=== PATIENT | male | born 1965 | race Caucasian/White ===

== ENCOUNTER 2017-02-17 10:44 | Emergency (ER) | payer MEDICAID ==
[~2017-02-17] VITALS: Ht 190.5 cm; Wt 127.0 kg
[2017-02-17 13:10] LABS: BASOPHILS % 1.3 % (0.0-2.0); EOSINOPHILS % 1.4 % (0.0-5.0); HEMOGLOBIN. 14.6 g/dL (14.0-18.0); LYMPHOCYTES % 20.2 % (20.0-50.0); MEAN CORPUSCULAR HEMOGLOBIN 30.2 pg (28.0-32.0); MEAN PLATELET VOLUME 8.8 fl (7.4-10.4); MONOCYTES % 8.7 % (2.0-8.0); NEUTROPHILS % 68.4 % (40.0-76.0); PLATELET 186 x1000/uL (130-400); RED BLOOD CELL COUNT 4.83 mill/uL (4.7-6.1); RED CELL DISTRIBUTION WIDTH 13.4 % (11.6-14.6)
[2017-02-17 13:17] LABS: INR 1.1; PROTHROMBIN TIME 11.1 sec
[2017-02-17 13:27] LABS: CARBON DIOXIDE 29 mEq/L (21-32); CHLORIDE 108 mEq/L (98-107); ETHANOL BLOOD < 10 mg/dL; TROPONIN I < 0.02 ng/mL (0.00-0.04)
[2017-02-17 13:33] LABS: *AMPHETAMINES SCREEN URINE NEGATIVE (NEGATIVE); *BARBITURATES SCREEN URINE NEGATIVE (NEGATIVE); *BENZODIAZEPINES SCREEN URINE NEGATIVE (NEGATIVE); *COCAINE SCREEN URINE NEGATIVE (NEGATIVE); CANNABINOID URINE SCREEN NEGATIVE (NEGATIVE); METHADONE URINE SCREEN NEGATIVE (NEGATIVE); OPIATES URINE SCREEN NEGATIVE (NEGATIVE); PHENCYCLIDINE URINE SCREEN NEGATIVE (NEGATIVE)
[2017-02-17 15:00] VITALS: BP 141/90
[2017-02-17] MEDS ORDERED: ASPIRIN 325MG TABLET PO NR (15:00)
[2017-02-17] MEDS ORDERED: FAMOTIDINE 20MG/2ML VIAL IV NR (15:00)
[2017-02-17 15:42] LABS: BG BASE EXCESS -1.1 mmol/L (-2.0-2.0); BG DEOXYHEMOGLOBIN 3.9 % (0.0-5.0); BG FRACTION INSPIRED OXYGEN 21; BG HCO3 ACT 22.2 mmol/L (22.0-26.0); BG METHEMOGLOBIN 0.3 % (0.0-1.5); BG OXYHEMOGLOBIN 94.8 % (94.0-97.0); BG PCO2 33.3 mmHg (35.0-45.0); BG PH 7.441 (7.350-7.450); BG PO2 82.8 mmHg (75.0-100.0); BG SAMPLE SITE LEFT RADIAL; BG TOTAL HEMOGLOBIN 15.3 g/dL (12.0-18.0); BG VENT MODE ROOM AIR
== END 2017-02-17 15:26 | disposition home or self-care (01) ==
LOC: ER 10:44
DX: R00.2 Palpitations (principal); E11.9 Type 2 diabetes mellitus without complications
CPT/HCPCS: 36415; 36600; 71010; 80053; 80305; 82375; 82805; 83036; 83690; 83880; 84484; 85025; 85610; 93005; 99285; G0482

== ENCOUNTER 2018-02-26 06:19 | Emergency (ER) | payer MEDICAID ==
[~2018-02-26] VITALS: Ht 190.5 cm; Wt 109.0 kg
[2018-02-26] MEDS ORDERED: KETOROLAC 60MG/2ML VIAL IM NR (09:58)
[2018-02-26 10:28] VITALS: BP 122/83
== END 2018-02-26 12:10 | disposition home or self-care (01) ==
LOC: ER 06:19
DX: M25.572 Pain in left ankle and joints of left foot (principal); M10.9 Gout, unspecified; R03.0 Elevated blood-pressure reading, without diagnosis of hypertension
CPT/HCPCS: 73610; 96372; 99284; J1885

== ENCOUNTER 2019-05-19 10:57 | Emergency (ER) | payer MEDICAID ==
[~2019-05-19] VITALS: Ht 182.9 cm; Wt 95.0 kg
[2019-05-19] MEDS ORDERED: TRAMADOL 50MG TABLET PO ONE (11:30)
[2019-05-19] MEDS ORDERED: COLCHICINE 0.6MG TABLET PO ONE (12:30)
[2019-05-19] MEDS ORDERED: KETOROLAC 60MG/2ML VIAL IM ONE (12:30)
[2019-05-19 13:37] VITALS: BP 144/99
== END 2019-05-19 13:43 | disposition home or self-care (01) ==
LOC: ER 10:57
DX: R07.89 Other chest pain (principal); M10.9 Gout, unspecified
CPT/HCPCS: 36415; 84484; 93005; 96372; 99284; J1885

== ENCOUNTER 2021-03-16 13:12 | Emergency (ER) | payer MEDICAID ==
[~2021-03-16] VITALS: Ht 188 cm; Wt 132.0 kg
[2021-03-16 14:20] VITALS: BP 117/83
[2021-03-16] MEDS ORDERED: NEOM10SO12 LEFT EAR (15:02)
[2021-03-16] MEDS ORDERED: AMOX-424 MT (15:02)
== END 2021-03-16 15:09 | disposition home or self-care (01) ==
LOC: ER 13:22
DX: H66.93 Otitis media, unspecified, bilateral (principal); H60.92 Unspecified otitis externa, left ear
CPT/HCPCS: 99283

== ENCOUNTER 2022-04-13 19:13 | Emergency (ER) | payer MEDICAID ==
[~2022-04-13] VITALS: Ht 190.5 cm; Wt 127.0 kg
[~2022-04-13 19:13] MED LIST: AMOX-424 MT; NEOM10SO12 LEFT EAR
[2022-04-13] MEDS ORDERED: KETOROLAC 30MG/ML VIAL IV STA (20:24)
[2022-04-13] MEDS ORDERED: SODIUM CHLORIDE 0.9% 1,000 ML IV ONE (20:30)
[2022-04-13 20:36] LABS: EOSINOPHILS % 1.8 % (0.0-5.0); HEMATOCRIT. 43.1 % (42.0-52.0); HEMOGLOBIN. 14.7 g/dL (14.0-18.0); LYMPHOCYTES % 15.2 % (20.0-50.0); MEAN CORPUSCULAR HEMOGLOBIN 31.9 pg (28.0-32.0); MEAN CORPUSCULAR VOLUME 93.4 fL (80.0-94.0); MONOCYTES % 6.3 % (2.0-8.0); NEUTROPHILS % 75.7 % (40.0-76.0); PLATELET 215 x1000/uL (130-400); RED BLOOD CELL COUNT 4.61 mill/uL (4.7-6.1); RED CELL DISTRIBUTION WIDTH 13.1 % (11.6-14.6)
[2022-04-13 20:57] LABS: CHLORIDE 102 mEq/L (98-107)
[2022-04-13 21:01] LABS: CLARITY URINE CLEAR (CLEAR); COLOR URINE YELLOW (YELLOW); KETONES URINE TRACE (NEGATIVE); LEUKOCYTE ESTERASE URINE NEGATIVE (NEGATIVE); NITRITE URINE NEGATIVE (NEGATIVE); OCCULT BLOOD URINE TRACE (NEGATIVE); PROTEIN URINE NEGATIVE (NEGATIVE); SPECIFIC GRAVITY URINE 1.014 (1.005-1.030); UROBILINOGEN URINE 0.2 E.U./dL (0.2-1.0)
[2022-04-13 22:00] VITALS: BP 118/72
[2022-04-14] MEDS ORDERED: TETANUS, DIPHTHERIA, PERTUSSIS VAC/PF 0.5ML (>10YR OLD) IM ONE (00:15)
== END 2022-04-14 00:29 | disposition home or self-care (01) ==
LOC: ER 19:13
DX: N21.0 Calculus in bladder (principal); E11.9 Type 2 diabetes mellitus without complications
CPT/HCPCS: 36415; 74176; 80053; 81003; 83605; 83690; 85025; 90471; 90715; 93005; 96361; 96374; 99285; J1885; J7030

== ENCOUNTER 2022-10-06 10:50 | Emergency (ER) | payer MEDICAID, OTHER ==
[~2022-10-06] VITALS: Ht 193 cm; Wt 116.0 kg
[2022-10-06 11:23] VITALS: BP 130/81
[2022-10-06 19:16] LABS: BASOPHILS % 0.3 % (0.0-2.0); EOSINOPHILS % 1.4 % (0.0-5.0); HEMATOCRIT. 43.9 % (42.0-52.0); HEMOGLOBIN. 14.9 g/dL (14.0-18.0); LYMPHOCYTES % 22.5 % (20.0-50.0); MEAN CORPUSCULAR VOLUME 94.5 fL (80.0-94.0); MEAN PLATELET VOLUME 8.9 fl (7.4-10.4); MONOCYTES % 6.3 % (2.0-8.0); NEUTROPHILS % 69.5 % (40.0-76.0); PLATELET 196 x1000/uL (130-400); RED BLOOD CELL COUNT 4.65 mill/uL (4.7-6.1); RED CELL DISTRIBUTION WIDTH 13.4 % (11.6-14.6)
[2022-10-06 19:25] LABS: CHLORIDE 106 mEq/L (98-107)
== END 2022-10-07 07:22 | disposition home or self-care (01) ==
LOC: ER 10:50
DX: Z00.00 Encounter for general adult medical examination without abnormal findings (principal); E87.5 Hyperkalemia; E11.9 Type 2 diabetes mellitus without complications; I10 Essential (primary) hypertension; M10.9 Gout, unspecified; Z87.442 Personal history of urinary calculi
CPT/HCPCS: 36415; 80053; 85025; 93005; 99284; Z7610